=== PATIENT | male | born 1980 | race Caucasian/White ===

== ENCOUNTER 2019-07-30 00:21 | Emergency (ER) | payer OTHER ==
[~2019-07-30] VITALS: Ht 175.3 cm; Wt 102.1 kg
[2019-07-30 00:34] VITALS: Ht 175.3 cm; Wt 102.1 kg
[2019-07-30 01:06] VITALS: BP 121/55
== END 2019-07-30 01:06 | disposition other institution (70) ==
LOC: ED 00:21
DX: Z02.89 Encounter for other administrative examinations (principal)